=== PATIENT | male | born 1950 | race Caucasian/White ===

== ENCOUNTER → 2016-11-20 | Outpatient (CLI) | payer MEDICARE ==
[2016-11-20 09:08] LABS: ALT 33 U/L (21-72); AST 15 U/L (17-59); Alkaline Phosphatase 50 U/L (38-126); Anion Gap 11 mmol/L; Blood Urea Nitrogen 27 mg/dL (9-20); Calcium 9.7 mg/dL (8.4-10.2); Carbon Dioxide 24 mmol/L (22-30); Chloride 105 mmol/L (98-107); Cholesterol 96 mg/dL (<200); Glucose 220 mg/dL (74-99); HDL Cholesterol 46 mg/dL (40-60); Non-African American GFR(MDRD) >60 (>60 ml/min/1.73 sqM); Potassium 4.7 mmol/L (3.5-5.1); Sodium 140 mmol/L (137-145); Total Bilirubin 0.6 mg/dL (0.2-1.3); Total Protein 6.8 g/dL (6.3-8.2)
[2016-11-20 10:44] LABS: Hemoglobin A1C 8.9 % (4.2-6.1)
[2016-11-20 16:55] LABS: Urine Creatinine 171.7 mg/dL
== END | disposition home or self-care (01) ==
LOC: LABWHC1 07:24
PROVIDERS: ATTEND Internal Medicine Endocrinology, Diabetes & Metabolism
DX: E11.65 Type 2 diabetes mellitus with hyperglycemia (principal)
CPT/HCPCS: 36415; 80053; 80061; 82043; 82570; 83036

== ENCOUNTER → 2017-05-05 | Outpatient (CLI) | payer MEDICARE ==
--- NOTE | 2017-05-05 16:17 | XR ---
EXAMINATION TYPE: XR foot complete LT DATE OF EXAM: 05/05/2017 COMPARISON: NONE HISTORY: 66-year-old male with fifth metatarsal pain, osteoarthritis. TECHNIQUE: 3 views FINDINGS: There is moderate degenerative change at the first MTP joint and at the first metatarsal sesamoid ralph nt. Additional moderate to advanced degenerative change at the first IP joint with plantar joint subl uxation. No acute fracture or dislocation seen. IMPRESSION: Moderate first MTP joint OA. Moderate to severe first IP joint OA with plantar joint subluxation. No acute osseous abnormality seen.
== END | disposition home or self-care (01) ==
LOC: RADXRMAIN 15:16
PROVIDERS: ATTEND Family Medicine
DX: M19.072 Primary osteoarthritis, left ankle and foot (principal); S93.332A Other subluxation of left foot, initial encounter

== ENCOUNTER → 2017-06-04 | Outpatient (CLI) | payer MEDICARE ==
[2017-06-04 07:29] LABS: ALT 31 U/L (21-72); AST 19 U/L (17-59); Albumin 4.1 g/dL (3.5-5.0); Alkaline Phosphatase 46 U/L (38-126); Anion Gap 9 mmol/L; Blood Urea Nitrogen 20 mg/dL (9-20); Calcium 9.6 mg/dL (8.4-10.2); Carbon Dioxide 32 mmol/L (22-30); Chloride 99 mmol/L (98-107); Cholesterol 114 mg/dL (<200); Glucose 194 mg/dL (74-99); HDL Cholesterol 48 mg/dL (40-60); LDL Cholesterol,Calculated 31 mg/dL (0-99); Potassium 4.6 mmol/L (3.5-5.1); Sodium 140 mmol/L (137-145); Total Bilirubin 0.8 mg/dL (0.2-1.3); Total Protein 6.7 g/dL (6.3-8.2); Triglycerides 173 mg/dL (<150)
[2017-06-04 13:26] LABS: Hemoglobin A1C 9.1 % (4.0-6.0)
== END | disposition home or self-care (01) ==
LOC: LABWHC1 06:54
PROVIDERS: ATTEND Internal Medicine Endocrinology, Diabetes & Metabolism
DX: E11.65 Type 2 diabetes mellitus with hyperglycemia (principal)
CPT/HCPCS: 36415; 80053; 80061; 82043; 82570; 83036

== ENCOUNTER → 2017-09-10 | Outpatient (CLI) | payer MEDICARE ==
[2017-09-10 09:15] LABS: ALT 32 U/L (21-72); AST 19 U/L (17-59); Alkaline Phosphatase 43 U/L (38-126); Anion Gap 6 mmol/L; Blood Urea Nitrogen 28 mg/dL (9-20); Calcium 9.3 mg/dL (8.4-10.2); Carbon Dioxide 28 mmol/L (22-30); Chloride 105 mmol/L (98-107); Cholesterol 99 mg/dL (<200); Glucose 135 mg/dL (74-99); HDL Cholesterol 41 mg/dL (40-60); LDL Cholesterol,Calculated 32 mg/dL (0-99); Potassium 4.4 mmol/L (3.5-5.1); Sodium 139 mmol/L (137-145); Total Bilirubin 0.5 mg/dL (0.2-1.3); Total Protein 6.3 g/dL (6.3-8.2); Triglycerides 132 mg/dL (<150)
[2017-09-10 17:25] LABS: Hemoglobin A1C 8.2 % (4.0-6.0)
== END | disposition home or self-care (01) ==
LOC: LABWHC1 08:05
PROVIDERS: ATTEND Internal Medicine Endocrinology, Diabetes & Metabolism
DX: E11.65 Type 2 diabetes mellitus with hyperglycemia (principal)
CPT/HCPCS: 36415; 80053; 80061; 82043; 82570; 83036

== ENCOUNTER 2017-09-24 19:00 | Emergency (ER) | payer MEDICARE ==
[2017-09-24 19:12] VITALS: TEMP 98.3
[2017-09-24 19:14] LABS: Glucose,Whole Blood 99 mg/dL (75-99)
--- NOTE | 2017-09-24 20:29 | ED ---
General Adult HPI - General Source: patient, RN notes reviewed Mode of arrival: ambulatory Limitations: no limitations <Judson Gil - Last Filed: 09/24/17 20:49> <Elyse Boykin - Last Filed: 09/24/17 22:30> - General Chief complaint: Recheck/Abnormal Lab/Rx Stated complaint: hypoglycemia Time Seen by Provider: 09/24/17 19:00 - History of Present Illness Initial comments: This is a 66-year-old male who presents to the emergency room stating after he had dinner he started getting the shakes and feeling very weak. Patient states he also felt like it takes deep breaths was not actually short of breath just needed more volume. Patient stated that he finished dinner at 5 and the symptoms started about 6. Patient took his blood sugar was 98 which is typically low for him. Patient is on for oral hypoglycemic medications plus a long-acting insulin. Patient denies any fever but states he did feel cold in his house even though the temperature 76. Patient denies headache patient denies numbness weakness. Patient denies any abdominal pain patient denies nausea vomiting or diarrhea. Patient denies any chest pain or palpitations. Patient denies any recent fever chills or cough. Patient denies any dysuria hematuria urinary frequency. (Judson Gil) - Related Data Home Medications Medication Instructions Recorded Confirmed Aspirin 81 mg PO DAILY 04/15/14 09/24/17 Bisoprolol-Hctz 10-6.25 mg [Ziac 1 each PO DAILY 04/15/14 09/24/17 10-6.25 MG] metFORMIN HCL [Glucophage] 500 mg PO BID 04/15/14 09/24/17 sitaGLIPtin PHOSPHATE [Januvia] 100 mg PO DAILY 04/15/14 09/24/17 Atorvastatin [Lipitor] 20 mg PO DAILY 09/24/17 09/24/17 Insulin Glargine,Hum.rec.anlog 34 unit SQ DAILY 09/24/17 09/24/17 [Basaglar Kwikpen U-100] Omeprazole 20 mg PO DAILY 09/24/17 09/24/17 Pioglitazone [Actos] 30 mg PO DAILY 09/24/17 09/24/17 glipiZIDE [Glucotrol] 10 mg PO AC-BID 09/24/17 09/24/17 Allergies Allergy/AdvReac Type Severity Reaction Status Date / Time Iodinated Contrast- Oral and Allergy Rash/Hives Verified 09/24/17 20:08 IV Dye [Iodinated Contrast Media - IV Dye] morphine AdvReac Nausea & Verified 09/24/17 20:08 Vomiting Review of Systems ROS Other: All systems not noted in ROS Statement are negative. <Judson Gil - Last Filed: 09/24/17 20:49> ROS Other: All systems not noted in ROS Statement are negative. <Elyse Boykin - Last Filed: 09/24/17 22:30> ROS Statement: Those systems with pertinent positive or pertinent negative responses have been documented in the HPI. Past Medical History Past Medical History: Diabetes Mellitus, GERD/Reflux, Hypertension Additional Past Medical History / Comment(s): family hx. colon cancer, rash both legs History of Any Multi-Drug Resistant Organisms: None Reported Past Surgical History: Orthopedic Surgery Additional Past Surgical History / Comment(s): ankle surg., eye surg. Past Anesthesia/Blood Transfusion Reactions: No Reported Reaction Past Psychological History: No Psychological Hx Reported Smoking Status: Never smoker Past Alcohol Use History: None Reported Past Drug Use History: None Reported <Judson Gil - Last Filed: 09/24/17 20:49> General Exam Limitations: no limitations <Judson Gil - Last Filed: 09/24/17 20:49> <Elyse Boykin P - Last Filed: 09/24/17 22:30> - General Exam Comments Initial Comments: GENERAL: Patient is well-developed and well-nourished. Patient is nontoxic and well- hydrated and is in mild distress. ENT: Neck is soft and supple. No significant lymphadenopathy is noted. Oropharynx is clear. Moist mucous membranes. Neck has full range of motion without eliciting any pain. EYES: The sclera were anicteric and conjunctiva were pink and moist. Extraocular movements were intact and pupils were equal round and reactive to light. Eyelids were unremarkable. PULMONARY: Unlabored respirations. Good breath sounds bilaterally. No audible rales rhonchi or wheezing was noted. CARDIOVASCULAR: There is a regular rate and rhythm without any murmurs gallops or rubs. ABDOMEN: Soft and nontender with normal bowel sounds. No palpable organomegaly was noted. There is no palpable pulsatile mass. SKIN: Skin is clear with no lesions or rashes and otherwise unremarkable. NEUROLOGIC: Patient is alert and oriented x3. Cranial nerves II through XII are grossly intact. Motor and sensory are also intact. Normal speech, volume and content. Symmetrical smile. MUSCULOSKELETAL: Normal extremities with adequate strength and full range of motion. LYMPHATICS: No significant lymphadenopathy is noted PSYCHIATRIC: Normal psychiatric evaluation. Normal interpersonal interactions appears functionally intact in deals appropriately with others. No signs of depression. No signs of anxiety. (Judson Gil) Course <Judson Gil - Last Filed: 09/24/17 20:49> <Elyse Boykin - Last Filed: 09/24/17 22:30> Vital Signs 09/24/17 09/24/17 19:08 21:08 Temperature 98.3 F Pulse Rate 82 87 Respiratory 18 18 Rate Blood Pressure 170/100 180/90 O2 Sat by Pulse 96 97 Oximetry - Reevaluation(s) Reevaluation #1: Patient was evaluated, patient resting comfortably in bed states that he is eager to go home. Patient had multiple questions about his home oral hypoglycemics. 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 Patient and are in agreement with this. Patient able to ambulate independently to the restroom to provide a urine sample. 09/24/17 22:03 (Elyse Boykin) Medical Decision Making <Judson Gil - Last Filed: 09/24/17 20:49> - Lab Data Result diagrams: 09/24/17 20:25 09/24/17 20:25 <Elyse Boykin - Last Filed: 09/24/17 22:30> - Medical Decision Making EKG shows normal sinus rhythm at 72 bpm AL interval 180 QRS is 82 QT interval is 46 QTC is 444. Patient's EKG shows no ST segment elevation or depression or T wave abnormalities are noted Dr. Boykin will be taking over care of this patient at 9 PM (Judson Gil) - Lab Data Lab Results 09/24/17 09/24/17 09/24/17 Range/Units 19:12 20:25 20:25 WBC 9.0 (3.8-10.6) k/uL RBC 5.05 (4.30-5.90) m/uL Hgb 15.3 (13.0-17.5) gm/dL Hct 46.2 (39.0-53.0) % MCV 91.6 (80.0-100.0) fL MCH 30.4 (25.0-35.0) pg MCHC 33.2 (31.0-37.0) g/dL RDW 12.3 (11.5-15.5) % Plt Count 213 (150-450) k/uL Neutrophils % 64 % Lymphocytes % 27 % Monocytes % 6 % Eosinophils % 1 % Basophils % 0 % Neutrophils # 5.7 (1.3-7.7) k/uL Lymphocytes # 2.4 (1.0-4.8) k/uL Monocytes # 0.5 (0-1.0) k/uL Eosinophils # 0.1 (0-0.7) k/uL Basophils # 0.0 (0-0.2) k/uL Sodium 137 (137-145) mmol/L Potassium 4.3 (3.5-5.1) mmol/L Chloride 100 (98-107) mmol/L Carbon Dioxide 29 (22-30) mmol/L Anion Gap 8 mmol/L BUN 22 H (9-20) mg/dL Creatinine 0.76 (0.66-1.25) mg/dL Est GFR (CKD-EPI)AfAm >90 (>60 ml/min/1.73 sqM) Est GFR (CKD-EPI)NonAf >90 (>60 ml/min/1.73 sqM) Glucose 166 H (74-99) mg/dL POC Glucose (mg/dL) 99 (75-99) mg/dL POC Glu Acid Splicer ID Bush, Liza Calcium 9.3 (8.4-10.2) mg/dL Magnesium 2.0 (1.6-2.3) mg/dL Total Bilirubin 0.3 (0.2-1.3) mg/dL AST 21 (17-59) U/L ALT 32 (21-72) U/L Alkaline Phosphatase 45 (38-126) U/L Total Protein 6.7 (6.3-8.2) g/dL Albumin 4.3 (3.5-5.0) g/dL Urine Color Urine Appearance (Clear) Urine pH (5.0-8.0) Ur Specific [place] (1.001-1.035) Urine Protein (Negative) Urine Glucose (UA) (Negative) Urine Ketones (Negative) Urine Blood (Negative) Urine Nitrite (Negative) Urine Bilirubin (Negative) Urine Urobilinogen (<2.0) mg/dL Ur Leukocyte Esterase (Negative) 09/24/17 09/24/17 Range/Units 20:35 22:07 WBC (3.8-10.6) k/uL RBC (4.30-5.90) m/uL Hgb (13.0-17.5) gm/dL Hct (39.0-53.0) % MCV (80.0-100.0) fL MCH (25.0-35.0) pg MCHC (31.0-37.0) g/dL RDW (11.5-15.5) % Plt Count (150-450) k/uL Neutrophils % % Lymphocytes % % Monocytes % % Eosinophils % % Basophils % % Neutrophils # (1.3-7.7) k/uL Lymphocytes # (1.0-4.8) k/uL Monocytes # (0-1.0) k/uL Eosinophils # (0-0.7) k/uL Basophils # (0-0.2) k/uL Sodium (137-145) mmol/L Potassium (3.5-5.1) mmol/L Chloride (98-107) mmol/L Carbon Dioxide (22-30) mmol/L Anion Gap mmol/L BUN (9-20) mg/dL Creatinine (0.66-1.25) mg/dL Est GFR (CKD-EPI)AfAm (>60 ml/min/1.73 sqM) Est GFR (CKD-EPI)NonAf (>60 ml/min/1.73 sqM) Glucose (74-99) mg/dL POC Glucose (mg/dL) 158 H (75-99) mg/dL POC Glu Acid Splicer ID Iva Altamirano Calcium (8.4-10.2) mg/dL Magnesium (1.6-2.3) mg/dL Total Bilirubin (0.2-1.3) mg/dL AST (17-59) U/L ALT (21-72) U/L Alkaline Phosphatase (38-126) U/L Total Protein (6.3-8.2) g/dL Albumin (3.5-5.0) g/dL Urine Color Yellow Urine Appearance Clear (Clear) Urine pH 7.5 (5.0-8.0) Ur Specific [place] 1.015 (1.001-1.035) Urine Protein Negative (Negative) Urine Glucose (UA) 4+ H (Negative) Urine Ketones Negative (Negative) Urine Blood Negative (Negative) Urine Nitrite Negative (Negative) Urine Bilirubin Negative (Negative) Urine Urobilinogen <2.0 (<2.0) mg/dL Ur Leukocyte Esterase Negative (Negative) Disposition <Judson Gil - Last Filed: 09/24/17 20:49> Is patient prescribed a controlled substance at d/c from ED?: No Time of Disposition: 22:23 <Elyse Boykin - Last Filed: 09/24/17 22:30> Clinical Impression: Diabetes Disposition: HOME SELF-CARE Condition: Good Instructions: Type 2 Diabetes in Adults (ED) Referrals: Polo Oshea DO [Primary Care Provider] - 1-2 days
[2017-09-24 20:37] LABS: Glucose,Whole Blood 158 mg/dL (75-99)
[2017-09-24 20:48] LABS: Basophils % (A) 0 %; Eosinophils # (A) 0.1 k/uL (0-0.7); Eosinophils % (A) 1 %; HCT 46.2 % (39.0-53.0); HGB 15.3 gm/dL (13.0-17.5); Lymphocytes # (A) 2.4 k/uL (1.0-4.8); Lymphocytes % (A) 27 %; MCH 30.4 pg (25.0-35.0); MCHC 33.2 g/dL (31.0-37.0); MCV 91.6 fL (80.0-100.0); Mean Platelet Volume 7.3; Monocytes # (A) 0.5 k/uL (0-1.0); Monocytes % (A) 6 %; Neutrophils # (A) 5.7 k/uL (1.3-7.7); Neutrophils % (A) 64 %; Platelet Count 213 k/uL (150-450); RBC 5.05 m/uL (4.30-5.90); RDW 12.3 % (11.5-15.5)
[2017-09-24 21:07] LABS: ALT 32 U/L (21-72); AST 21 U/L (17-59); Albumin 4.3 g/dL (3.5-5.0); Alkaline Phosphatase 45 U/L (38-126); Anion Gap 8 mmol/L; Blood Urea Nitrogen 22 mg/dL (9-20); Calcium 9.3 mg/dL (8.4-10.2); Carbon Dioxide 29 mmol/L (22-30); Chloride 100 mmol/L (98-107); Glucose 166 mg/dL (74-99); Potassium 4.3 mmol/L (3.5-5.1); Sodium 137 mmol/L (137-145); Total Bilirubin 0.3 mg/dL (0.2-1.3); Total Protein 6.7 g/dL (6.3-8.2)
--- NOTE | 2017-09-24 21:48 | XR ---
EXAMINATION: XR chest 3V DATE AND TIME: 09/24/2017 9:15 PM ORDERING PROVIDER: Judson Gil CLINICAL INDICATION: Difficulty breathing TECHNIQUE: PA and 2 lateral COMPARISON: 07/31/2011 DESCRIPTION: The lungs are clear. The pleural spaces are negative. The cardiac silhouette is not enlarged. The mediastinal and pleural silhouettes are unremarkable. The skeletal structures are intact without focal findings. Overlying soft tissues are prominent, but negative for acute findings. IMPRESSION: NO ACUTE PROCESS.
[2017-09-24 22:16] LABS: Appearance,Urine Clear (Clear); Bilirubin,Urine Negative (Negative); Blood,Urine Negative (Negative); Color,Urine Yellow; Glucose,Urine (UA) 4+ (Negative); Ketones,Urine Negative (Negative); Leukocyte Esterase,Urine Negative (Negative); Nitrite,Urine Negative (Negative); PH, Urine 7.5 (5.0-8.0); Protein,Urine Negative (Negative); Specific Gravity,Urine 1.015 (1.001-1.035); Urobilinogen,Urine <2.0 mg/dL (<2.0)
[2017-09-24 22:33] VITALS: BP 170/89; PULSE 80; RESP 20
== END 2017-09-24 22:33 | disposition home or self-care (01) ==
LOC: EC 19:00
DX: E11.9 Type 2 diabetes mellitus without complications (principal); K21.9 Gastro-esophageal reflux disease without esophagitis; I10 Essential (primary) hypertension; Z98.890 Other specified postprocedural states; Z79.4 Long term (current) use of insulin; Z79.82 Long term (current) use of aspirin; Z79.899 Other long term (current) drug therapy; Z88.5 Allergy status to narcotic agent; Z91.041 Radiographic dye allergy status
CPT/HCPCS: 36415; 71046; 80053; 81003; 83735; 85025; 93005; 99283

== ENCOUNTER → 2017-10-23 | Outpatient (CLI) | payer MEDICARE ==
[2017-10-23 07:05] LABS: Blood Urea Nitrogen 25 mg/dL (9-20)
--- NOTE | 2017-10-23 08:34 | CT ---
EXAMINATION TYPE: CT abdomen wo/w con DATE OF EXAM: 10/23/2017 COMPARISON: 09/14/2009 HISTORY: 66-year-old male abdominal Pain, ventral hernia TECHNIQUE: Contiguous axial scanning of the abdomen before and after administration of 100 ml Isovue 300 IV contrast. Delayed images through the kidneys and coronal/sagittal reconstructions performed. CT DLP: 1758 mGycm Automated exposure control for dose reduction was used. FINDINGS: Heart normal size without pericardial effusion. Stable tiny calcified granuloma visualized right lowe r lung, axial image 8. Slightly diminished attenuation of the hepatic parenchyma; there may be mild underlying fatty infiltr ation. No focal liver lesions seen. No biliary ductal dilatation. Portal venous system is pain. A couple cysts within the right kidney are increased in size from 2009 but measure up to only 1.4 cm. Symmetric uptake and excretion of contrast from both kidneys. Adrenal glands, spleen with anterior splenule, and pancreas appear within normal limits. No dilated small bowel, free fluid, or free air. No mesenteric or retroperitoneal lymphadenopathy. Normal appendix. Scattered mild stool and occasional colonic diverticulosis. No pericolonic inflammat ory change. There is mild supraumbilical rectus diastases measuring 4.9 cm wide with bulging laxity of the linea alba. This was present back in 2009 but the bulging may be minimally increased. Bones: Facet arthropathy lower lumbar spine. Mild degenerative disc disease lower thoracic spine. IMPRESSION: 1. MILD SUPRAUMBILICAL RECTUS DIASTASES MEASURING 4.9 CM WIDE. THERE IS BULGING LAXITY OF THE LINEA ALBA WITHOUT A BEAU HERNIA SAC. 2. OCCASIONAL COLONIC DIVERTICULOSIS.
== END | disposition home or self-care (01) ==
LOC: RADCTMAIN 06:22
PROVIDERS: ATTEND Family Medicine
DX: M62.08 Separation of muscle (nontraumatic), other site (principal); K57.30 Diverticulosis of large intestine without perforation or abscess without bleeding
CPT/HCPCS: 82565; 84520; 74170; 36415; Q9967

== ENCOUNTER → 2017-10-28 | Outpatient (CLI) | payer MEDICARE ==
--- NOTE | 2017-10-29 09:23 | NM ---
EXAMINATION TYPE: NM hepatobiliary w EF DATE OF EXAM: 10/28/2017 COMPARISON: NONE INDICATION: Abdominal pain TECHNIQUE: After the intravenous administration of 4.9 mCi Tc 99m Mebrofenin hepatobiliary scintigrap hy is performed. Images were obtained immediately post injection. FINDINGS: There is prompt uptake and excretion of radiotracer by the liver. Extrahepatic ducts are identified at 3 minutes. The gallbladder is visualized within 8 minutes. Small bowel activity is noted within 13 minutes. At one hour 8 ounces of oral ensure plus is given to mimic CCK and gallbladder ejection fraction is c alculated at 87 %, which is elevated. (Normal >35% and <80%.). IMPRESSION: 1. Clinical correlation recommended for biliary hyperkinesia.
== END | disposition home or self-care (01) ==
LOC: RADNMMAIN 14:59
PROVIDERS: ATTEND Family Medicine
DX: R10.9 Unspecified abdominal pain (principal)
CPT/HCPCS: 78226; A9537

== ENCOUNTER → 2017-12-29 | Outpatient (CLI) | payer MEDICARE ==
[2017-12-29 12:02] LABS: Albumin 4.1 g/dL (3.80-4.90); Albumin/Globulin Ratio 2.41 (1.20-2.10); Anion Gap 5.7 mmol/L (4.00-12.00); Calcium 8.9 mg/dL (8.7-10.3); Carbon Dioxide 31.3 mmol/L (21.6-31.8); Globulin 1.7 g/dL (2.1-3.7); Potassium 4.4 mmol/L (3.5-5.5); Total Bilirubin 0.7 mg/dL (0.3-1.2); Total Protein 5.8 g/dL (6.2-8.2)
== END ==
LOC: LABWHC1 06:50
PROVIDERS: ATTEND Internal Medicine Endocrinology, Diabetes & Metabolism
DX: E11.65 Type 2 diabetes mellitus with hyperglycemia (principal)
CPT/HCPCS: 36415; 80053; 80061; 82043; 82570; 83036

== ENCOUNTER → 2018-06-12 | Outpatient (CLI) | payer MEDICARE ==
--- NOTE | 2018-06-12 15:57 | XR ---
EXAMINATION TYPE: XR knee complete bilateral DATE OF EXAM: 06/12/2018 CLINICAL HISTORY: Chronic bilateral knee pain with no known injury TECHNIQUE: Three views of the bilateral knees were obtained. COMPARISON: None. FINDINGS: There is no acute fracture/dislocation evident in either knee. With respect to both knees there is mild tibial plateau sclerosis and very small tricompartmental ost eophytes. No suprapatellar joint effusion. No suspicious osseous lesion. Soft tissues are unremarkabl e. IMPRESSION: There is no acute fracture or dislocation in either knee. Mild tricompartmental arthropa thy bilaterally.
== END | disposition home or self-care (01) ==
LOC: RADXRMAIN 14:36
PROVIDERS: ATTEND Family Medicine
DX: M17.0 Bilateral primary osteoarthritis of knee (principal)

== ENCOUNTER → 2018-08-03 | Outpatient (CLI) | payer MEDICARE ==
[2018-08-03 16:56] LABS: African American GFR (CKD) 101.4 (60.0-200.0); Albumin 4.1 g/dL (3.80-4.90); Albumin/Globulin Ratio 2.41 (1.60-3.17); Anion Gap 7.2 mmol/L (4.00-12.00); BUN/Creat Ratio 41.11 Ratio (12.00-20.00); Calcium 9.1 mg/dL (8.7-10.3); Carbon Dioxide 28.8 mmol/L (21.6-31.8); Globulin 1.7 g/dL (1.6-3.3); LDL Cholesterol,Calculated 45.6 mg/dL (0.0-131.0); Potassium 4.3 mmol/L (3.5-5.5); Total Bilirubin 0.5 mg/dL (0.2-1.2); Total Protein 5.8 g/dL (6.2-8.2); VLDL Calculation 27.4 mg/dL (5.00-40.00)
[2018-08-03 20:17] LABS: Hemoglobin A1C 8.3 % (4.0-6.0)
== END ==
LOC: LABWHC1 07:35
PROVIDERS: ATTEND Internal Medicine Endocrinology, Diabetes & Metabolism
DX: E11.65 Type 2 diabetes mellitus with hyperglycemia (principal)
CPT/HCPCS: 36415; 80053; 80061; 82043; 82570; 83036; 84443

== ENCOUNTER → 2019-02-26 | Outpatient (CLI) | payer MEDICARE ==
[2019-02-26 17:23] LABS: African American GFR (CKD) 105.6 (60.0-200.0); Albumin 4.3 g/dL (3.80-4.90); Albumin/Globulin Ratio 2.53 (1.60-3.17); Anion Gap 9.1 mmol/L (4.00-12.00); BUN/Creat Ratio 33.75 Ratio (12.00-20.00); Carbon Dioxide 24.9 mmol/L (21.6-31.8); Chol/HDL Ratio 3.03; Globulin 1.7 g/dL (1.6-3.3); LDL Cholesterol,Calculated 44.6 mg/dL (0.0-131.0); Non-African American GFR(CKD) 91.1 (60.0-200.0); Potassium 4.2 mmol/L (3.5-5.5); Total Bilirubin 0.7 mg/dL (0.2-1.2); VLDL Calculation 14.4 mg/dL (5.00-40.00)
[2019-02-26 19:48] LABS: Hemoglobin A1C 7.6 % (4.0-6.0)
== END | disposition home or self-care (01) ==
LOC: LABWHC1 08:28
PROVIDERS: ATTEND Internal Medicine Endocrinology, Diabetes & Metabolism
DX: E11.65 Type 2 diabetes mellitus with hyperglycemia (principal)
CPT/HCPCS: 36415; 80053; 80061; 82043; 82570; 83036; 84443

== ENCOUNTER → 2020-01-07 | Outpatient (CLI) | payer MEDICARE ==
[2020-01-07 11:11] LABS: African American GFR (CKD) 104.9 (60.0-200.0); Albumin 4.5 g/dL (3.80-4.90); Albumin/Globulin Ratio 2.25 (1.60-3.17); Anion Gap 7.8 mmol/L (4.00-12.00); Calcium 9.4 mg/dL (8.7-10.3); Carbon Dioxide 29.2 mmol/L (21.6-31.8); Chol/HDL Ratio 3.56; LDL Cholesterol,Calculated 69.2 mg/dL (0.0-131.0); Non-African American GFR(CKD) 90.5 (60.0-200.0); Potassium 4.6 mmol/L (3.5-5.5); Total Bilirubin 0.7 mg/dL (0.3-1.2); Total Protein 6.5 g/dL (6.2-8.2); VLDL Calculation 22.8 mg/dL (5.00-40.00)
[2020-01-07 14:16] LABS: Hemoglobin A1C 7.1 % (4.0-6.0)
[2020-01-07 21:37] LABS: Urine Creatinine 105.4 mg/dL
== END | disposition home or self-care (01) ==
LOC: LABWHC1 07:40
PROVIDERS: ATTEND Internal Medicine Endocrinology, Diabetes & Metabolism
DX: E11.65 Type 2 diabetes mellitus with hyperglycemia (principal)
CPT/HCPCS: 36415; 80053; 80061; 82043; 82570; 83036; 84443

== ENCOUNTER → 2020-04-26 | Outpatient (CLI) | payer MEDICARE ==
[2020-04-26 19:05] LABS: Hemoglobin A1C 7.3 % (4.0-6.0)
[2020-04-26 21:59] LABS: Urine Creatinine 102.2 mg/dL
[2020-04-26 22:26] LABS: African American GFR (CKD) 104.9 (60.0-200.0); Albumin 4.7 g/dL (3.80-4.90); Albumin/Globulin Ratio 2.47 (1.60-3.17); Anion Gap 9.8 mmol/L (4.00-12.00); Calcium 9.5 mg/dL (8.7-10.3); Carbon Dioxide 25.2 mmol/L (21.6-31.8); Chol/HDL Ratio 4.17; Globulin 1.9 g/dL (1.6-3.3); LDL Cholesterol,Calculated 95.4 mg/dL (0.0-131.0); Non-African American GFR(CKD) 90.5 (60.0-200.0); Potassium 4.7 mmol/L (3.5-5.5); Total Bilirubin 0.7 mg/dL (0.2-1.2); Total Protein 6.6 g/dL (6.2-8.2); VLDL Calculation 34.6 mg/dL (5.00-40.00)
== END | disposition home or self-care (01) ==
LOC: LABWHC1 08:06
PROVIDERS: ATTEND Internal Medicine Endocrinology, Diabetes & Metabolism
DX: E11.65 Type 2 diabetes mellitus with hyperglycemia (principal)
CPT/HCPCS: 36415; 80053; 80061; 82043; 82570; 83036; 84443

== ENCOUNTER → 2020-06-08 | Outpatient (CLI) | payer MEDICARE ==
[2020-06-08 14:20] LABS: African American GFR (CKD) >90 (>60 ml/min/1.73 sqM); Blood Urea Nitrogen 35 mg/dL (9-20); Non-African American GFR(CKD) 85 (>60 ml/min/1.73 sqM)
--- NOTE | 2020-06-08 15:13 | CT ---
EXAMINATION TYPE: CT brain wo/w con DATE OF EXAM: 06/08/2020 COMPARISON: CT brain July 31, 2011 HISTORY: syncope, dizziness CT DLP: 2108.4 mGycm Automated exposure control for dose reduction was used. CONTRAST: CT scan of the head is performed without and with IV Contrast, patient injected with 100 mL of Isovue 300. FINDINGS: Noncontrast images show no acute hemorrhage or midline shift. Mild ventricular and sulcal prominence on current study new from the prior. Mild low attenuation in the periventricular right matter slight ly more prominent from prior. Postcontrast images show no suspicious enhancing masses. The globes are intact and the visualized sinuses are clear. No suspicious opacification of the mastoid air cells bi laterally. IMPRESSION: Mild diffuse age-related cerebral atrophy and chronic small vessel ischemic change. No tomlinson spicious enhancement noted.
== END | disposition home or self-care (01) ==
LOC: RADCTMAIN 13:27
PROVIDERS: ATTEND Family Medicine
DX: I67.82 Cerebral ischemia (principal); G31.9 Degenerative disease of nervous system, unspecified
CPT/HCPCS: 82565; 84520; 70470; 36415; Q9967

== ENCOUNTER 2020-10-26 11:06 | Emergency (ER) | payer MEDICARE ==
[2020-10-26 11:11] VITALS: RESP 18; TEMP 98.2
--- NOTE | 2020-10-26 11:58 | ED ---
General Adult HPI - General Chief complaint: Abdominal Pain Stated complaint: Male Time Seen by Provider: 10/26/20 11:10 Source: patient, RN notes reviewed, old records reviewed Mode of arrival: ambulatory Limitations: no limitations - History of Present Illness Initial comments: This is a 69-year-old male who presents emergency Department stating he's had bilateral lower quadrant abdominal pain for the last 3 weeks. Patient states over the last few days she's noticed some enlargement of left testicle. Patient denies any dysuria hematuria urinary frequency. Patient denies any redness to his scrotum. Patient denies any tenderness to the testicle. Patient denies any nausea vomiting diarrhea. Patient denies any recent fever chills or cough. Patient denies any back pain. Patient states he has seen Dr. Dan for his abdominal pain he will continue to follow-up with him. - Related Data Home Medications Medication Instructions Recorded Confirmed Aspirin 81 mg PO DAILY 04/15/14 09/24/17 Bisoprolol-Hctz 10-6.25 mg [Ziac 1 each PO DAILY 04/15/14 09/24/17 10-6.25 MG] metFORMIN HCL [Glucophage] 500 mg PO BID 04/15/14 09/24/17 sitaGLIPtin PHOSPHATE [Januvia] 100 mg PO DAILY 04/15/14 09/24/17 Atorvastatin [Lipitor] 20 mg PO DAILY 09/24/17 09/24/17 Insulin Glargine,Hum.rec.anlog 34 unit SQ DAILY 09/24/17 09/24/17 [Basaglar Kwikpen U-100] Omeprazole 20 mg PO DAILY 09/24/17 09/24/17 Pioglitazone [Actos] 30 mg PO DAILY 09/24/17 09/24/17 glipiZIDE [Glucotrol] 10 mg PO AC-BID 09/24/17 09/24/17 Allergies Allergy/AdvReac Type Severity Reaction Status Date / Time Iodinated Contrast Media Allergy Rash/Hives Verified 10/26/20 11:07 [Iodinated Contrast Media - IV Dye] morphine AdvReac Nausea & Verified 10/26/20 11:07 Vomiting Review of Systems ROS Statement: Those systems with pertinent positive or pertinent negative responses have been documented in the HPI. ROS Other: All systems not noted in ROS Statement are negative. Past Medical History Past Medical History: Diabetes Mellitus, GERD/Reflux, Hypertension Additional Past Medical History / Comment(s): family hx. colon cancer, rash both legs History of Any Multi-Drug Resistant Organisms: None Reported Past Surgical History: Orthopedic Surgery Additional Past Surgical History / Comment(s): ankle surg., eye surg. Past Anesthesia/Blood Transfusion Reactions: No Reported Reaction Past Psychological History: No Psychological Hx Reported Smoking Status: Never smoker Past Alcohol Use History: None Reported Past Drug Use History: None Reported General Exam - General Exam Comments Initial Comments: GENERAL: Patient is well-developed and well-nourished. Patient is nontoxic and well- hydrated and is in no acute distress. ENT: Neck is soft and supple. No significant lymphadenopathy is noted. Oropharynx is clear. Moist mucous membranes. Neck has full range of motion without eliciting any pain. EYES: The sclera were anicteric and conjunctiva were pink and moist. Extraocular movements were intact and pupils were equal round and reactive to light. Eye lids were unremarkable. PULMONARY: Unlabored respirations. Good breath sounds bilaterally. No audible rales rhonchi or wheezing was noted. CARDIOVASCULAR: There is a regular rate and rhythm without any murmurs gallops or rubs. ABDOMEN: Abdomen the lower right and lower left quadrant is tender to palpation no rebound is noted. Patient's abdomen seems mildly distended. GENITALIA: Scrotum is no erythema no edema. Left testicle is normal right testicle appears to be enlarged however there is no tenderness to the testicle or surrounding area. SKIN: Skin is clear with no lesions or rashes and otherwise unremarkable. NEUROLOGIC: Patient is alert and oriented x3. Cranial nerves II through XII are grossly intact. Motor and sensory are also intact. Normal speech, volume and content. Symmetrical smile. MUSCULOSKELETAL: Normal extremities with adequate strength and full range of motion. LYMPHATICS: No significant lymphadenopathy is noted PSYCHIATRIC: Normal psychiatric evaluation. Limitations: no limitations Course Vital Signs 10/26/20 10/26/20 11:08 12:11 Temperature 98.2 F Pulse Rate 77 Respiratory 18 18 Rate Blood Pressure 160/90 O2 Sat by Pulse 96 Oximetry Medical Decision Making - Medical Decision Making Ultrasound shows a right-sided hydrocele testicle is normal. - Lab Data Result diagrams: 10/26/20 12:11 10/26/20 12:11 Lab Results 10/26/20 10/26/20 10/26/20 Range/Units 12:11 12:11 12:11 WBC 8.9 (3.8-10.6) k/uL RBC 4.93 (4.30-5.90) m/uL Hgb 16.3 (13.0-17.5) gm/dL Hct 46.8 (39.0-53.0) % MCV 94.8 (80.0-100.0) fL MCH 33.1 (25.0-35.0) pg MCHC 34.9 (31.0-37.0) g/dL RDW 12.9 (11.5-15.5) % Plt Count 192 (150-450) k/uL MPV 8.0 Neutrophils % 61 % Lymphocytes % 27 % Monocytes % 7 % Eosinophils % 2 % Basophils % 0 % Neutrophils # 5.4 (1.3-7.7) k/uL Lymphocytes # 2.4 (1.0-4.8) k/uL Monocytes # 0.6 (0-1.0) k/uL Eosinophils # 0.2 (0-0.7) k/uL Basophils # 0.0 (0-0.2) k/uL Sodium 139 (137-145) mmol/L Potassium 3.9 (3.5-5.1) mmol/L Chloride 103 (98-107) mmol/L Carbon Dioxide 26 (22-30) mmol/L Anion Gap 10 mmol/L BUN 30 H (9-20) mg/dL Creatinine 0.62 L (0.66-1.25) mg/dL Est GFR (CKD-EPI)AfAm >90 (>60 ml/min/1.73 sqM) Est GFR (CKD-EPI)NonAf >90 (>60 ml/min/1.73 sqM) Glucose 120 H (74-99) mg/dL Calcium 9.7 (8.4-10.2) mg/dL Total Bilirubin 0.8 (0.2-1.3) mg/dL AST 23 (17-59) U/L ALT 20 (4-49) U/L Alkaline Phosphatase 48 (38-126) U/L Total Protein 6.8 (6.3-8.2) g/dL Albumin 4.5 (3.5-5.0) g/dL Amylase 67 (30-110) U/L Lipase 98 (23-300) U/L Urine Color Light Yellow Urine Appearance Clear (Clear) Urine pH 5.0 (5.0-8.0) Ur Specific [place] 1.033 (1.001-1.035) Urine Protein Negative (Negative) Urine Glucose (UA) 4+ H (Negative) Urine Ketones Negative (Negative) Urine Blood Negative (Negative) Urine Nitrite Negative (Negative) Urine Bilirubin Negative (Negative) Urine Urobilinogen <2.0 (<2.0) mg/dL Ur Leukocyte Esterase Negative (Negative) Disposition Clinical Impression: Hydrocele Disposition: HOME SELF-CARE Condition: Good Is patient prescribed a controlled substance at d/c from ED?: No Referrals: Titus Toledo MD [STAFF PHYSICIAN] - 1-2 days Time of Disposition: 14:21
[2020-10-26 12:36] LABS: Appearance,Urine Clear (Clear); Bilirubin,Urine Negative (Negative); Blood,Urine Negative (Negative); Color,Urine Light Yellow; Glucose,Urine (UA) 4+ (Negative); Ketones,Urine Negative (Negative); Leukocyte Esterase,Urine Negative (Negative); Nitrite,Urine Negative (Negative); Protein,Urine Negative (Negative); Specific Gravity,Urine 1.033 (1.001-1.035); Urobilinogen,Urine <2.0 mg/dL (<2.0)
[2020-10-26 12:48] LABS: ALT 20 U/L (4-49); AST 23 U/L (17-59); African American GFR (CKD) >90 (>60 ml/min/1.73 sqM); Albumin 4.5 g/dL (3.5-5.0); Alkaline Phosphatase 48 U/L (38-126); Amylase 67 U/L (30-110); Anion Gap 10 mmol/L; Blood Urea Nitrogen 30 mg/dL (9-20); Calcium 9.7 mg/dL (8.4-10.2); Carbon Dioxide 26 mmol/L (22-30); Chloride 103 mmol/L (98-107); Glucose 120 mg/dL (74-99); Lipase 98 U/L (23-300); Non-African American GFR(CKD) >90 (>60 ml/min/1.73 sqM); Potassium 3.9 mmol/L (3.5-5.1); Sodium 139 mmol/L (137-145); Total Bilirubin 0.8 mg/dL (0.2-1.3); Total Protein 6.8 g/dL (6.3-8.2)
[2020-10-26 12:53] LABS: Basophils % (A) 0 %; Eosinophils # (A) 0.2 k/uL (0-0.7); Eosinophils % (A) 2 %; HCT 46.8 % (39.0-53.0); HGB 16.3 gm/dL (13.0-17.5); Lymphocytes # (A) 2.4 k/uL (1.0-4.8); Lymphocytes % (A) 27 %; MCH 33.1 pg (25.0-35.0); MCHC 34.9 g/dL (31.0-37.0); MCV 94.8 fL (80.0-100.0); Monocytes # (A) 0.6 k/uL (0-1.0); Monocytes % (A) 7 %; Neutrophils # (A) 5.4 k/uL (1.3-7.7); Neutrophils % (A) 61 %; Platelet Count 192 k/uL (150-450); RBC 4.93 m/uL (4.30-5.90); RDW 12.9 % (11.5-15.5); WBC 8.9 k/uL (3.8-10.6)
--- NOTE | 2020-10-26 14:04 | US ---
EXAMINATION TYPE: US scrotum with doppler. Grayscale and color Doppler Duplex imaging performed of t saurav scrotum. DATE OF EXAM: 10/26/2020 COMPARISON: NONE CLINICAL HISTORY: Swollen right testicle. right swollen testicle wit no pain, no injury EXAM MEASUREMENTS: TESTICLES: Right Testicle: 3.8 x 3.7 x 2.5 cm Left Testicle: 3.6 x 3.2 x 2.3 cm EPIDIDYMIS HEAD: Right Epididymis: 0.8 cm Left Epididymis: 0.6 cm Doppler performed to assess for testicular vascularity; good bilateral color flow and waveforms are s een. Presence of hydroceles: yes, right sided Presence of varicoceles: no IMPRESSION: Corresponding to patient history there is moderate to large size right scrotal fluid shaniqua ection or hydrocele.
[2020-10-26 14:54] VITALS: BP 145/87; PULSE 70
== END 2020-10-26 14:56 | disposition home or self-care (01) ==
LOC: EC 11:06
DX: N43.3 Hydrocele, unspecified (principal); I10 Essential (primary) hypertension; E11.9 Type 2 diabetes mellitus without complications; K21.9 Gastro-esophageal reflux disease without esophagitis; Z79.82 Long term (current) use of aspirin; Z79.84 Long term (current) use of oral hypoglycemic drugs; Z88.5 Allergy status to narcotic agent; Z91.041 Radiographic dye allergy status
CPT/HCPCS: 36415; 51798; 76870; 80053; 81003; 82150; 83690; 85025; 93975; 99284

== ENCOUNTER → 2021-02-14 | Day surgery (SDC) | payer MEDICARE ==
[2021-02-13 11:42] VITALS: BMI 34.0
[~2021-02-14] MED LIST: LACTATED RINGERS 1,000 ML IV ONE; LACTATED RINGERS 1,000 ML IV SCH; PROPOFOL 10 MG/ML 20 ML VIAL IV ONE
[2021-02-14 07:30] LABS: Glucose,Whole Blood 143 mg/dL (75-99)
--- NOTE | 2021-02-14 07:46 | P.PCN ---
Date of Procedure: 02/14/21 Procedure(s) Performed: BRIEF HISTORY: Patient is a 70-year-old pleasant white male scheduled for an elective colonoscopy as a part of screening for colorectal neoplasia. His dad was diagnosed with colon cancer at age 50. PROCEDURE PERFORMED: Colonoscopy. PREOPERATIVE DIAGNOSIS: Screening for colon cancer and family history of colon cancer. IV sedation per Anesthesia. PROCEDURE: After informed consent was obtained, the patient, was brought into the endoscopy unit. IV sedation was administered by Anesthesia under continuous monitoring. Digital rectal examination was normal. Initially the Olympus CF-160 flexible video colonoscope was then inserted in the rectum, gradually advanced into the cecum without any difficulty. Careful examination was performed as the scope was gradually being withdrawn. Ileocecal valve and the appendiceal orifice were visualized and appeared normal. Prep was excellent. Mucosa of the cecum, ascending colon, transverse colon, descending colon, sigmoid colon, and rectum appeared normal. Retroflexion was performed in the rectum and no lesions were seen. The patient tolerated the procedure well. IMPRESSION: Normal-appearing colon from rectum to cecum with no evidence of colorectal neoplasia. RECOMMENDATIONS: Findings of this examination were discussed with the patient as well as his family.. He was advised to have a repeat screening colonoscopy in 5 years because of the family history of colon cancer
== END ==
LOC: ORWHC2ENDO 06:44
PROVIDERS: ATTEND Internal Medicine Gastroenterology
DX: Z12.11 Encounter for screening for malignant neoplasm of colon (principal); Z80.0 Family history of malignant neoplasm of digestive organs; I10 Essential (primary) hypertension; E11.9 Type 2 diabetes mellitus without complications; K21.9 Gastro-esophageal reflux disease without esophagitis; Z79.82 Long term (current) use of aspirin; Z79.899 Other long term (current) drug therapy
CPT/HCPCS: J2704; G0105; 45378

== ENCOUNTER 2021-04-04 10:35 | Emergency (ER) | payer MEDICARE ==
[2021-04-04 10:40] VITALS: BP 153/89; PULSE 67; RESP 18; TEMP 97.9
--- NOTE | 2021-04-04 11:40 | CT ---
EXAMINATION TYPE: CT brain mimi wo con DATE OF EXAM: 04/04/2021 COMPARISON: 06/08/2020 HISTORY: 70-year-old male with pain after fall CT DLP: 1734.6 mGycm Automated exposure control for dose reduction was used. Technique: Examination of the head was done in axial plane without intravenous contrast. Coronal and sagittal reconstructions performed. CT of the cervical spine was obtained in axial plane without intravenous injection of contrast mater ial. Coronal and sagittal reformatted images were obtained from the axial views for evaluation of f ractures, spinal alignment and canal. FINDINGS: Head: There is no evidence of acute intracranial hemorrhage, acute ischemic changes, mass, mass-effect, or extra-axial fluid collection. There is no effacement of cerebral sulci or basal subarachnoid cister ns. There is no hydrocephalus. There is no midline shift. Jackson-white matter distinction is preserv ed. Slightly hyperdense blood pool. Correlate to exclude dehydration. Mild patchy white matter hypodensit ies in both cerebral hemispheres unchanged. Atherosclerotic calcifications in the carotid siphons and also V4 segment right vertebral artery. Undulating nasal septum. Trace mucosal thickening ethmoid air cells and a small mucosal retention cys t floor right maxillary sinus measuring 9 mm. Orbits and globes appear intact. Cervical spine: No craniocervical junction abnormality, predental space widening, or prevertebral soft tissue swellin g. Degenerative changes of the C1 dens articulation. Moderate disc/endplate degenerative change C5-C7 levels with disc space narrowing and disc osteophyte complex formation. There is contiguous to mild spinal canal narrowing at both of these levels. Scattered facet and uncovertebral joint arthropathy. Preserved alignment of the cervical spine. No acute fracture is identified. Moderate left and mild right neuroforaminal stenosis at C6-C7. Sagittal and coronal reformatted image s confirm above findings. COMBINED IMPRESSION: 1. Slight high density of the blood pool. Correlate for dehydration. There is mild patchy burden of c hronic small vessel ischemic disease. Otherwise, no acute intracranial abnormality seen. 2. No acute fracture or malalignment of the cervical spine. Moderate spondylotic change C5-C7.
--- NOTE | 2021-04-04 12:15 | ED ---
Fall HPI - General Chief Complaint: Fall Stated Complaint: Fall/head injury/yesterday Time Seen by Provider: 04/04/21 10:57 Source: patient, family, RN notes reviewed Mode of arrival: wheelchair Limitations: no limitations - History of Present Illness Initial Comments: This a 70-year-old male presents emergency from chief head injury. Patient states she slipped on some ice yesterday striking his head. No loss conscious. He does take a baby aspirin. Patient states that he just felt off today, he complains of right eye pain and pressure behind that he states he HAS blurred vision may be worsened usual but is hard to tell secondary to his glasses. Patient denies any vomiting denies any focal weakness he states he just feels tired. Patient felt on balance earlier but that was very short limited. Patient states she's been acting appropriately - Related Data Home Medications Medication Instructions Recorded Confirmed Aspirin 81 mg PO DAILY 04/15/14 02/14/21 Bisoprolol-Hctz 10-6.25 mg [Ziac 1 each PO DAILY 04/15/14 02/14/21 10-6.25 MG] metFORMIN HCL [Glucophage] 500 mg PO BID 04/15/14 02/14/21 sitaGLIPtin PHOSPHATE [Januvia] 100 mg PO DAILY 04/15/14 02/14/21 Atorvastatin [Lipitor] 20 mg PO DAILY 09/24/17 02/14/21 Pioglitazone [Actos] 30 mg PO DAILY 09/24/17 02/14/21 glipiZIDE [Glucotrol] 5 mg PO AC-BID 09/24/17 02/14/21 Dulaglutide [Trulicity] 1.5 mg SQ GALLEGOS 02/13/21 02/14/21 Insulin Glargine,Hum.rec.anlog 16 unit SQ QAM 02/13/21 02/14/21 [Lantus Solostar Pen] Omeprazole Magnesium [PriLOSEC OTC] 20 mg PO DIRECTED PRN 02/13/21 02/14/21 Allergies Allergy/AdvReac Type Severity Reaction Status Date / Time Iodinated Contrast Media Allergy Rash/Hives Verified 04/04/21 10:41 [Iodinated Contrast Media - IV Dye] morphine AdvReac Nausea & Verified 04/04/21 10:41 Vomiting Review of Systems ROS Statement: Those systems with pertinent positive or pertinent negative responses have been documented in the HPI. ROS Other: All systems not noted in ROS Statement are negative. Past Medical History Past Medical History: Diabetes Mellitus, GERD/Reflux, Hypertension, Osteoarthritis (OA) Additional Past Medical History / Comment(s): family hx. colon cancer, Vertigo- states he needs to get up slowly or he will pass out. History of Any Multi-Drug Resistant Organisms: None Reported Past Surgical History: Orthopedic Surgery Additional Past Surgical History / Comment(s): ankle surg., eye surg., hydrocele, colonoscopies. Past Anesthesia/Blood Transfusion Reactions: No Reported Reaction Past Psychological History: No Psychological Hx Reported Smoking Status: Never smoker Past Alcohol Use History: None Reported Past Drug Use History: None Reported - Past Family History Father Family Medical History: Cancer Additional Family Medical History / Comment(s): colon,lung & bladder cancer with mets. General Exam Limitations: no limitations General appearance: alert, in no apparent distress Head exam: Present: atraumatic, normocephalic, normal inspection Eye exam: Present: normal appearance, PERRL, EOMI. Absent: scleral icterus, conjunctival injection, periorbital swelling ENT exam: Present: normal exam, normal oropharynx, mucous membranes moist Neck exam: Present: normal inspection, full ROM. Absent: tenderness, meningismus, lymphadenopathy Respiratory exam: Present: normal lung sounds bilaterally. Absent: respiratory distress, wheezes, rales, rhonchi, stridor Cardiovascular Exam: Present: regular rate, normal rhythm, normal heart sounds. Absent: systolic murmur, diastolic murmur, rubs, gallop, clicks Extremities exam: Present: normal inspection, full ROM, normal capillary refill. Absent: tenderness, pedal edema, joint swelling, calf tenderness Neurological exam: Present: alert, oriented X3, CN II-XII intact, reflexes normal. Absent: motor sensory deficit Skin exam: Present: warm, dry, intact, normal color. Absent: rash Course Vital Signs 04/04/21 10:36 Temperature 97.9 F Pulse Rate 67 Respiratory 18 Rate Blood Pressure 153/89 O2 Sat by Pulse 98 Oximetry Medical Decision Making - Medical Decision Making CT brain does not reveal any intracranial hemorrhage or mass effect. The do question possibility of blood pooling from dehydration. He has a normal neuro exam ocular pressures checked in the right 16 a left 18 patient is able ambulates patient will follow-up with PCP we did discuss no driving climbing or any activity forming to him to head injury. Patient understands strict return parameters. Disposition Clinical Impression: Fall, Concussion Disposition: HOME SELF-CARE Condition: Stable Instructions (If sedation given, give patient instructions): Concussion (ED) Additional Instructions: Please return to the Emergency Department if symptoms worsen or any other concerns. Is patient prescribed a controlled substance at d/c from ED?: No Referrals: Polo Oshea DO [Primary Care Provider] - 1-2 days Time of Disposition: 12:14
== END 2021-04-04 12:24 | disposition home or self-care (01) ==
LOC: EC 10:35
DX: S06.0X0A Concussion without loss of consciousness, initial encounter (principal); E11.9 Type 2 diabetes mellitus without complications; K21.9 Gastro-esophageal reflux disease without esophagitis; I10 Essential (primary) hypertension; M19.90 Unspecified osteoarthritis, unspecified site; Z79.82 Long term (current) use of aspirin; Z79.84 Long term (current) use of oral hypoglycemic drugs; Z79.4 Long term (current) use of insulin; Z88.5 Allergy status to narcotic agent; W00.9XXA Unspecified fall due to ice and snow, initial encounter
CPT/HCPCS: 70450; 72125; 99283

== ENCOUNTER → 2022-06-24 | Outpatient (CLI) | payer MEDICARE ==
--- NOTE | 2022-06-24 15:41 | XR ---
EXAMINATION TYPE: XR chest 2V DATE OF EXAM: 06/24/2022 COMPARISON: Chest x-ray September 24, 2017 HISTORY: Cough and shortness of breath since Friday. TECHNIQUE: Frontal and lateral views of the chest are obtained. FINDINGS: Low lung volumes redemonstrated. There is patchy left basilar opacity. Right lung is clear. No pleural effusion or pneumothorax seen bilaterally. The cardiac silhouette size is within normal limits. The osseous structures are intact. IMPRESSION: Patchy left basilar acute infiltrate and/or atelectasis.
== END | disposition home or self-care (01) ==
LOC: RADXRMAIN 15:20
PROVIDERS: ATTEND Family Medicine
DX: J20.9 Acute bronchitis, unspecified (principal); J18.9 Pneumonia, unspecified organism; R91.8 Other nonspecific abnormal finding of lung field
CPT/HCPCS: 71046

== ENCOUNTER → 2022-07-05 | Outpatient (CLI) | payer MEDICARE ==
--- NOTE | 2022-07-05 10:26 | XR ---
EXAMINATION TYPE: XR chest 2V DATE OF EXAM: 07/05/2022 COMPARISON: 06/24/2022 HISTORY: 71-year-old male J20.9 Acute Bronchitis, J18.9 Pneumonia. TECHNIQUE: PA and lateral views FINDINGS: Heart normal size. Low lung volumes with crowded vascular markings. Atherosclerotic arch calcificatio ns. No consolidation or pleural effusion. IMPRESSION: Some hypoventilatory changes. No acute process seen.
== END | disposition home or self-care (01) ==
LOC: RADXRMAIN 09:12
PROVIDERS: ATTEND Family Medicine
DX: J20.9 Acute bronchitis, unspecified (principal); J18.9 Pneumonia, unspecified organism
CPT/HCPCS: 71046

== ENCOUNTER → 2023-07-30 | Outpatient (CLI) | payer MEDICARE ==
[2023-07-30 10:48] LABS: ALT 23 U/L (10-49); AST 16 U/L (14-35); Albumin 4.3 g/dL (3.8-4.9); Albumin/Globulin Ratio 2.15 Ratio (1.60-3.17); Alkaline Phosphatase 55 U/L (41-126); BUN/Creat Ratio 31.62 Ratio (12.00-20.00); Blood Urea Nitrogen 25.3 mg/dL (9.0-27.0); Calcium 9.2 mg/dL (8.7-10.3); Carbon Dioxide 26.4 mmol/L (21.6-31.8); Chloride 104 mmol/L (96-109); Chol/HDL Ratio 3.05 Ratio; Glucose 144 mg/dL (70-110); LDL Cholesterol,Calculated 60.3 mg/dL (0.0-131.0); Potassium 4.3 mmol/L (3.5-5.5); Sodium 139 mmol/L (135-145); Total Bilirubin 0.6 mg/dL (0.3-1.2); Total Protein 6.3 g/dL (6.2-8.2)
== END | disposition home or self-care (01) ==
LOC: LABWHC1 07:29
PROVIDERS: ATTEND Internal Medicine Endocrinology, Diabetes & Metabolism
DX: E11.65 Type 2 diabetes mellitus with hyperglycemia (principal)
CPT/HCPCS: 36415; 80053; 80061; 82043; 82570; 83036; 84443

== ENCOUNTER → 2023-11-24 | Outpatient (CLI) | payer MEDICARE ==
--- NOTE | 2023-11-24 15:48 | US ---
EXAMINATION TYPE: US carotid duplex BILAT DATE OF EXAM: 11/24/2023 COMPARISON: NONE CLINICAL INDICATION: Male, 72 years old with history of R55 Syncope; Syncope, pain left side of neck TECHNIQUE: Carotid duplex ultrasound examination. Indirect Doppler criteria was utilized. FINDINGS: EXAM MEASUREMENTS: RIGHT: Peak Systolic Velocity (PSV) cm/sec ----- Right CCA: 79.9 ----- Right ICA: 76.5 ----- Right ECA: 134.4 ICA/CCA ratio: 1.0 RIGHT: End Diastole cm/sec ----- Right CCA: 14.5 ----- Right ICA: 11.7 ----- Right ECA: 7.4 LEFT: Peak Systolic Velocity (PSV) cm/sec ----- Left CCA: 66.8 ----- Left ICA: 66.8 ----- Left ECA: 105.6 ICA/CCA ratio: 1.0 LEFT: End Diastole cm/sec ----- Left CCA: 15.4 ----- Left ICA: 17.1 ----- Left ECA: 8.5 VERTEBRALS (direction of flow): Right Vertebral: Antegrade Left Vertebral: Antegrade Rhythm: Normal FRAME STRIPPER NOTES: Heterogeneous plaque bilaterally with slightly elevated velocities within right EC A, otherwise no significant stenosis visualized IMPRESSION: Less than 50% stenosis of the bilateral carotid bifurcations. Criteria for Assigning % of Stenosis / Diameter reduction (Estimation based on the indirect measurements of the internal carotid artery velocities (ICA PSV). 1. Normal (no stenosis)=ICA PSV < 125 cm/s: ratio < 2.0: ICA EDV<40 cm/s. 2. Less than 50% stenosis=ICA PSV < 125 cm/s: ratio < 2.0: ICA EDV<40 cm/s. 3. 50 to 69% stenosis=ICA PSV of 125 to 230 cm/s: ration 2.0 ? 4.0: ICA EDV 40-100 cm/s. 4. Greater than 70% stenosis to near occlusion= ICA PSV > 230 cm/s: ratio > 4.0: ICA EDV > 100 cm/s. 5. Near occlusion= ICA PSV velocities may be low or undetectable: variable ratio and ICA EDV. 6. Total occlusion=unable to detect flow. [facility], , 11/24/2023 3:46 PM
== END | disposition home or self-care (01) ==
LOC: RADUSWWP 15:03
PROVIDERS: ATTEND Family Medicine
CPT/HCPCS: 93880